=== PATIENT | female | born 1995 | race Caucasian/White ===

== ENCOUNTER 2019-08-03 10:00 | Emergency (ER) | payer BC, MEDICAID ==
--- NOTE | 2019-08-03 10:35 | EDM.PDOC ---
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 She is now having left sided pelvic pain. She states she starts the day with bright red bleeding and by the end of the day it is dark. She has had several other miscarriages. Onset: Other ( the left sided pain started today. ) Duration: Hour(s): Location: Reports: Abdomen Associated Symptoms: Reports: No Other Symptoms Left Lower Abdomen Pain Score (Numeric/FACES): 5 - Related Data Allergies Allergy/AdvReac Type Severity Reaction Status Date / Time No Known Allergies Allergy Verified 08/03/19 10:25 Home Meds: Home Meds Norgestimate-Ethinyl Estradiol [Tri-Sprintec Tablet] 1 tab PO DAILY 08/03/19 [ History] Past Medical History - Past Health History Medical/Surgical History: Denies Medical/Surgical History Social & Family History - Caffeine Use Caffeine Use: Reports: Coffee, Soda ED ROS GENERAL - Review of Systems Review Of Systems: See Below Constitutional: Reports: No Symptoms HEENT: Reports: No Symptoms Respiratory: Reports: No Symptoms Cardiovascular: Reports: No Symptoms Endocrine: Reports: No Symptoms GI/Abdominal: Reports: Abdominal Pain : Reports: No Symptoms Musculoskeletal: Reports: No Symptoms Skin: Reports: No Symptoms Neurological: Reports: No Symptoms Psychiatric: Reports: No Symptoms ED EXAM - Physical Exam Exam: See Below Text/Narrative:: pt arrived with a history of vag bleeding since the Jun. Recently she has been doing more lifting at work and she is bleeding heavier. Exam Limited By: No Limitations General Appearance: Alert, Anxious, Moderate Distress Ears: Normal TMs Nose: Normal Inspection Throat/Mouth: Normal Inspection Head: Atraumatic Neck: Normal Inspection Respiratory/Chest: No Respiratory Distress Cardiovascular: Regular Rate, Rhythm GI/Abdominal Exam: Soft, Tender, Other (pt is quite tender in the left lowwr abdoman. ) Rectal Exam: Deferred Course - Vital Signs Last Recorded V/S: Last Vital Signs Temp 35.9 C L 08/03/19 10:42 Pulse 130 H 08/03/19 10:42 Resp 18 08/03/19 10:42 BP 127/80 08/03/19 10:42 Pulse Ox 99 08/03/19 10:42 - Orders/Labs/Meds Orders: Active Orders 24 hr Category Date Time Status Pelvis Non OB Ltd [US] Stat Exams 08/03/19 11:12 Taken Transvaginal Non OB [US] Stat Exams 08/03/19 11:12 Taken VL Duplex Abd Pel Ret Ltd [US] Stat Exams 08/03/19 Taken Labs: Laboratory Tests 08/03/19 08/03/19 08/03/19 Range/Units 10:47 10:47 10:47 WBC 6.4 (4.5-11.0) K/uL RBC 4.52 (3.30-5.50) M/uL Hgb 13.1 (12.0-15.0) g/dL Hct 41.1 (36.0-48.0) % MCV 91 (80-98) fL MCH 29 (27-31) pg MCHC 32 (32-36) % Plt Count 233 (150-400) K/uL Neut % (Auto) 64 (36-66) % Lymph % (Auto) 28 (24-44) % [place] % (Auto) 6 (2-6) % Eos % (Auto) 2 (2-4) % Baso % (Auto) 1 (0-1) % Sodium 138 L (140-148) mmol/L Potassium 3.7 (3.6-5.2) mmol/L Chloride 104 (100-108) mmol/L Carbon Dioxide 25 (21-32) mmol/L Anion Gap 12.7 (5.0-14.0) mmol/L BUN 12 (7-18) mg/dL Creatinine 0.8 (0.6-1.0) mg/dL Est Cr Clr Drug Dosing 108.44 mL/min Estimated GFR (MDRD) > 60 (>60) Glucose 102 (74-106) mg/dL Calcium 8.6 (8.5-10.1) mg/dL HCG, Quant 1 (0-6) mIU/mL Urine Color (YELLOW) Urine Appearance (CLEAR) Urine pH (5.0-8.0) Ur Specific Isabel (1.008-1.030) Urine Protein (NEGATIVE) mg/dL Urine Glucose (UA) (NEGATIVE) mg/dL Urine Ketones (NEGATIVE) mg/dL Urine Occult Blood (NEGATIVE) Urine Nitrite (NEGATIVE) Urine Bilirubin (NEGATIVE) Urine Urobilinogen (0.2-1.0) EU/dL Ur Leukocyte Esterase (NEGATIVE) Urine RBC (0-5) Urine WBC (0-5) Ur Epithelial Cells Amorphous Sediment Urine Bacteria Urine Mucus 08/03/19 Range/Units 11:23 WBC (4.5-11.0) K/uL RBC (3.30-5.50) M/uL Hgb (12.0-15.0) g/dL Hct (36.0-48.0) % MCV (80-98) fL MCH (27-31) pg MCHC (32-36) % Plt Count (150-400) K/uL Neut % (Auto) (36-66) % Lymph % (Auto) (24-44) % [place] % (Auto) (2-6) % Eos % (Auto) (2-4) % Baso % (Auto) (0-1) % Sodium (140-148) mmol/L Potassium (3.6-5.2) mmol/L Chloride (100-108) mmol/L Carbon Dioxide (21-32) mmol/L Anion Gap (5.0-14.0) mmol/L BUN (7-18) mg/dL Creatinine (0.6-1.0) mg/dL Est Cr Clr Drug Dosing mL/min Estimated GFR (MDRD) (>60) Glucose (74-106) mg/dL Calcium (8.5-10.1) mg/dL HCG, Quant (0-6) mIU/mL Urine Color Brown A (YELLOW) Urine Appearance Cloudy A (CLEAR) Urine pH 5.5 (5.0-8.0) Ur Specific Isabel >= 1.030 (1.008-1.030) Urine Protein 100 H (NEGATIVE) mg/dL Urine Glucose (UA) Negative (NEGATIVE) mg/dL Urine Ketones Trace H (NEGATIVE) mg/dL Urine Occult Blood Large H (NEGATIVE) Urine Nitrite Negative (NEGATIVE) Urine Bilirubin Small H (NEGATIVE) Urine Urobilinogen 0.2 (0.2-1.0) EU/dL Ur Leukocyte Esterase Negative (NEGATIVE) Urine RBC 75-100 H (0-5) Urine WBC 0-5 (0-5) Ur Epithelial Cells Moderate Amorphous Sediment Not seen Urine Bacteria Many Urine Mucus Few - Re-Assessments/Exams Free Text/Narrative Re-Assessment/Exam: 08/03/19 14:55 pt arrived with pain in the left lower abdoman and sig vag bleeding. She did have a slightly positive preg test. pt had normal lab work, Her urine is very concetrated. There is alot of blood in the urine because of the vag bleeding. 08/03/19 14:56 A Us of the pelvis was obtained and there is no ovarian cyst the uterine wall is not thick. Her quanttative hcg was totally neg. There does not appear to be retained tissue. A cat scan of the abdoman showed 2 very small stones in the left kidney and none in the ureter. I believe her bleeding is hormonal. Will refer to see Araceli jaramillo for a possible change in control. Departure - Departure Time of Disposition: 14:46 Disposition: Home, Self-Care 01 Condition: Fair Clinical Impression: Vagina bleeding, Left sided abdominal pain - Discharge Information Instructions: Dysfunctional Uterine Bleeding Referrals: Shahnaz Cisneros CNM [Primary Care Provider] - Forms: ED Department Discharge Care Plan Goals: push fluids, appt with Araceli regarding the bleeding perhaps a change in control, rtc if the pain gets alot worse. tylenol and motrin for pain. Sepsis Event Note - Focused Exam Vital Signs: Vital Signs Temp Pulse Resp BP Pulse Ox 08/03/19 10:42 35.9 C L 130 H 18 127/80 99 08/03/19 10:23 35.9 C L 130 H 18 127/80 99 Date Exam was Performed: 08/03/19 Time Exam was Performed: 14:52 - My Orders Last 24 Hours: My Active Orders 08/03/19 VL Duplex Abd Pel Ret Ltd [US] Stat 08/03/19 11:12 Pelvis Non OB Ltd [US] Stat Transvaginal Non OB [US] Stat - Assessment/Plan Last 24 Hours: My Active Orders 08/03/19 VL Duplex Abd Pel Ret Ltd [US] Stat 08/03/19 11:12 Pelvis Non OB Ltd [US] Stat Transvaginal Non OB [US] Stat
--- NOTE | 2019-08-03 14:25 | CT ---
Abdomen Pelvis wo Cont CLINICAL HISTORY: Lower abdominal pain COMPARISON: None. TECHNIQUE: Axial tomographic images are obtained from the dome of the diaphragm to the pubic symphysis without IV contrast enhancement. No oral contrast was used. Auto dosage reduction and iterative reconstruction techniques employed. FINDINGS: The lung bases are clear. The liver shows no mass or biliary dilatation. The gallbladder is partially contracted. The spleen has a normal size and shape. The pancreas shows no mass or inflammatory change. The adrenal glands appear normal bilaterally. The kidneys show no mass or hydronephrosis. There 2 punctate nonobstructing stones in the midpole of the left kidney. The aorta has a normal contour. There is no suspicious retroperitoneal adenopathy. The uterus is anteflexed. No adnexal mass or abnormal fluid collections are identified. No free fluid is seen. There is a small calcific-like density at the tip of the cecum on axial image #100 and coronal image #33. The appendix appears fairly well-demarcated. It measures just over 5 mm in diameter. It is no inflammatory change in the surrounding fat. There is some small nonspecific lymph nodes in both inguinal regions IMPRESSION: 2 punctate nonobstructing left renal calculi There is a tiny suspected appendicolith the at the tip of the cecum. Appendix has a normal contour.
--- NOTE | 2019-08-04 10:45 | US ---
VL Duplex Abd Pel Ret Ltd CLINICAL HISTORY: Pelvic pain with vaginal bleeding FINDINGS: Real-time transabdominal and transvaginal images were obtained through the pelvis. Uterus measures 7.4 x 5.0 x 3.3 cm. There is normal-appearing myometrium. Endometrial stripe measures 4 mm which is normal. There is some fluid in the low endocervical canal Right ovary measures 2.4 x 1.5 x 1.4 cm. Left ovary measures 2.8 x 3.3 x 1.8 cm. There is normal Doppler flow in both IMPRESSION: Small amount of nonspecific fluid in the endocervical canal. Pelvic ultrasound is otherwise normal
== END 2019-08-03 14:56 | disposition home or self-care (01) ==
LOC: JP.ED 10:00
DX: N93.9 Abnormal uterine and vaginal bleeding, unspecified (principal)
CPT/HCPCS: 36415; 74176; 74176-26; 76830; 76830-26; 76857; 76857-26; 80048; 81001; 84702; 85025; 87086; 93976; 93976-26; 99284-25